=== PATIENT | male | born 1980 | race Caucasian/White ===

== ENCOUNTER 2017-01-05 14:13 | Emergency (ER) | payer MEDICAID ==
[2017-01-05] MEDS ORDERED: EPINEPHrine RACEMIC INH 0.5 ML DEYVIAL IH ONE (14:19)
[2017-01-05] MEDS ORDERED: DEXAMETHASONE 10 MG/ML VIAL ONE (14:19)
[2017-01-05] MEDS ORDERED: NS 500 ML IV ONE (14:22)
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
[2017-01-05] MEDS ORDERED: DEXAMETHASONE 10 MG/ML VIAL IVP ONE (14:23)
[2017-01-05 14:28] VITALS: RESP 18; TEMP 97.9
[2017-01-05 16:14] VITALS: O2SAT 100
[2017-01-05 17:58] VITALS: BP 115/88; PULSE 76
== END 2017-01-05 17:58 | disposition home or self-care (01) ==
LOC: MERGE 14:13
DX: T59.811A Toxic effect of smoke, accidental (unintentional), initial encounter (principal)
CPT/HCPCS: 96374